=== PATIENT | female | born 1990 | race Two or more races ===

== ENCOUNTER → 2019-04-27 | Day surgery (SDC) | payer OTHER ==
[~2019-04-27] MED LIST: LIDOCAINE 1% INJ-PF (10 MG/ML) 30 ML SDV ONE
--- NOTE | 2019-04-27 11:07 | RADIOLOGY REPORT (SQ) ---
EXAM DESCRIPTION: FLUORO/NEEDLE PLACEMENT; ARTHRO WRIST INJECTION COMPLETED DATE/TIME: 04/27/2019 10:28 am REASON FOR STUDY: S63.502D UNSPECIFIED SPRAIN OF LEFT WRIST, SUBSEQUENT ENCOUNTER S63.502D UNSPECIF IED SPRAIN OF LEFT WRIST, SUBSEQUENT ENCOUN COMPARISON: None. FLUOROSCOPY TIME: 16 seconds 1 images saved to PACS. LIMITATIONS: None. PROCEDURE: Procedure, risks, benefits and alternatives explained to patient who then gave written co nsent. The left wrist was marked and a time-out was called for correct marking verification. Radioca rpal site marked using fluoroscopic guidance. Wrist prepped and draped using sterile technique. Loc al anesthesia achieved using 1% lidocaine injection. Hypodermic needle introduced into the joint spa ce under direct fluoroscopic visualization. Non-ionic contrast instilled to confirm intra-articular p osition. Dilute gadolinium solution then injected. Needle removed and entry site covered with steril e bandage. No immediate complications noted. TECHNIQUE: Digital images acquired during fluoroscopy and stored on PACS. Patient immediately take n to the MR suite for additional imaging. INJECTION LOCATION: Left wrist. CONTRAST TYPE AND AMOUNT: Dotarem 3 mL IMPRESSION: SUCCESSFUL NEEDLE PLACEMENT AND INJECTION FOR LEFT WRIST MR ARTHROGRAM. COMMENT: Quality ID #[id number]: Final reports for procedures using fluoroscopy that document radiation exp osure indices, or exposure time and number of fluorographic images (if radiation exposure indices are not available) TECHNICAL DOCUMENTATION: JOB ID: [id number] [email or web address]- All Rights Reserved Reading location - IP/workstation name: [email or web address]
--- NOTE | 2019-04-27 15:10 | RADIOLOGY REPORT (SQ) ---
EXAM DESCRIPTION: MRI LT UPPER JOINT WITH COMPLETED DATE/TIME: 04/27/2019 10:58 am REASON FOR STUDY: S63.502D UNSPECIFIED SPRAIN OF LEFT WRIST, SUBSEQUENT ENCOUNTER S63.502D UNSPECIF IED SPRAIN OF LEFT WRIST, SUBSEQUENT ENCOUN COMPARISON: None. TECHNIQUE: Left wrist post-arthrogram imaging includes T1 and T1 and T2 fat sat sequences. LIMITATIONS: None. FINDINGS: JOINT DISTENSION: Adequate. No loose body. There is extravasation of contrast dorsally a long the injection pathway, with a small amount of injected contrast into the extensor tendon compart ments on axial images 7-12. BONE MARROW: No alteration of signal to suggest marrow replacement or edema. No occult fracture. No l arge osteophytes. CARPAL ALIGNMENT AND ARTICULATION: Normal congruity of sigmoid notch at level of distal ruj without p ositive or negative ulnar variance. Normal capitolunate angle. No widening of scapholunate articulati on. SCAPHOLUNATE LIGAMENT: Although there is mild widening at the scapholunate interval on coronal image 9, scapholunate ligaments are intact, there is no leakage of contrast from the radiocarpal joint into the intercarpal joints. LUNATO-TRIQUETRAL LIGAMENT: Without tear. No contrast in middle carpal compartment. TFC COMPLEX: Radial and ulnar attachments normal. Meniscus intact. Extensor carpi ulnaris tendon norm al without tendinopathy. No contrast in distal RUJ. EXTRINSIC LIGAMENTS AND DISTAL RADIO-ULNAR JOINT: Dorsal and volar distal RUJ ligaments intact withou t subluxation of the distal ulna with respect to the radius. 1-6 EXTENSOR COMPARTMENTS: Normal. Specifically no tendinopathy of the abductor pollicis longus or ex tensor pollicis brevis to suggest de Quervains syndrome. CARPAL TUNNEL AND MEDIAN NERVE: Normal volume and morphology of carpal tunnel proximal at the level o f the radiocarpal joint and distally at the hook of the hamate. No thickening or signal alteration of median nerve. OTHER: No other significant finding. IMPRESSION: NORMAL MRI ARTHROGRAM OF THE WRIST. TECHNICAL DOCUMENTATION: JOB ID: [id number] [employer]- All Rights Reserved Reading location - IP/workstation name: [email or web address]
== END ==
LOC: RAD 09:34
PROVIDERS: ATTEND Specialist/Technologist Athletic Trainer
DX: S63.502D Unspecified sprain of left wrist, subsequent encounter (principal); X58.XXXD Exposure to other specified factors, subsequent encounter
CPT/HCPCS: 73222; 25246; 77002; A9576; J3490

== ENCOUNTER 2020-05-13 23:16 | Emergency (ER) | payer OTHER ==
[2020-05-13 23:44] VITALS: BP 114/88
== END 2020-05-13 23:48 | disposition left against medical advice (07) ==
LOC: ER 23:16
DX: Z53.21 Procedure and treatment not carried out due to patient leaving prior to being seen by health care provider (principal)